=== PATIENT | male | born 1950 | race Caucasian/White ===

== ENCOUNTER 2018-02-02 13:14 | Emergency (ER) | payer OTHER ==
[~2018-02-02] VITALS: Ht 180.3 cm; Wt 97.1 kg
[~2018-02-02 13:14] MED LIST: ALTACE10 MG PO; ASPIR 8181 MG PO; ASPIRIN325 PO; HYDROCHLOROTHIA25 M2 PO; HYDROCODONE-AP1 EAC6 PO; LIPITOR10 MG PO; PHENERGAN 25 MG25 M1 PO
[2018-02-02 13:20] VITALS: BP 149/94
[2018-02-02 13:31] LABS: HEMATOCRIT 47.3 % (42.0-52.0); HEMOGLOBIN 15.9 gm/dL (14.0-18.0); MCHC 33.6 g/dL (28.0-37.0); MCV 86.3 fL (80.0-100.0); MPV 8.6 fl. (7.2-11.1); RBC 5.47 mil/uL (4.50-6.00); RDW-CV 13.2 % (10.5-14.5); WBC 8.2 thou/uL (4.0-11.0)
[2018-02-02 13:39] LABS: CALCIUM 9.6 mg/dL (8.5-10.1); CREATININE 1.2 mg/dL (0.6-1.3); POTASSIUM 3.6 mmol/L (3.5-5.1)
[2018-02-02 13:41] LABS: APTT 25.8 Seconds (25.0-31.3); INR 1.1; PROTIME 10.5 Seconds (9.20-11.50)
[2018-02-02 13:43] LABS: TOTAL BILIRUBIN 0.4 mg/dL (<0.1-1.0)
[2018-02-02 15:02] LABS: POC CA IONIZED 4.8 mg/dL (4.5-5.3); POC CREATININE 1.1 mg/dL (0.6-1.3); POC POTASSIUM 3.5 mmol/L (3.5-4.9)
[2018-02-02 15:55] VITALS: BP 135/92
--- NOTE | 2018-02-02 16:37 | EKG ---
[place] [address] ELECTROCARDIOGRAM REPORT Name: MICHAEL FLORES [id number] Admission: 02/02/18 Attend Phys: Discharge: 02/02/18 Date of : 52 Report #: [id number] THIS REPORT FOR: //name// [facility] ED Test Date: 2018-02-02 Test Time: 13:51:32 Pat Name: MICHAEL FLORES Department: Room: [facility] Gender: M Automotive Finance Manager: MS : 1950 Requested By: Tito Smith Order Number: [id number] MD: Nelson Ortiz Measurements Intervals [place] Rate: 99 P: 73 NE: 162 QRS: -38 QRSD: 156 T: 90 QT: 396 QTc: 509 Interpretive Statements Sinus tachycardia Multiple premature complexes, vent & supraven Left bundle branch block Baseline wander in lead(s) V1 Compared to ECG 11/07/2017 12:03:56 Sinus rhythm no longer present Atrial premature complex(es) no longer present Electronically Signed On 02-02-2018 16:37:18 SHUTTLER by Nelson Ortiz [email or web address] <ELECTRONICALLY SIGNED> By: Nelson Ortiz MD, FACC 02/02/18 1637 1351 1351 Nelson Ortiz MD, [facility] /EPI
== END 2018-02-02 15:57 | disposition short-term general hospital (02) ==
LOC: M.ERS 13:14 → M.TBA-ER 14:03 → M.ERS 15:57
PROVIDERS: Emergency Medicine Emergency Medical Services; Internal Medicine
DX: I63.511 Cerebral infarction due to unspecified occlusion or stenosis of right middle cerebral artery (principal); I10 Essential (primary) hypertension; E78.00 Pure hypercholesterolemia, unspecified

== ENCOUNTER 2018-07-24 11:24 | Observation (INO) | payer OTHER ==
[~2018-07-24] VITALS: Ht 177.8 cm; Wt 78.9 kg
[2018-07-24 11:40] VITALS: BP 175/74
[2018-07-24] MEDS ORDERED: PLAVIX 75 MG TA75 MG PO (11:45)
[2018-07-24] MEDS ORDERED: PROZAC20 MG PO (11:45)
[2018-07-24 12:03] LABS: HEMATOCRIT 46.2 % (42.0-52.0); HEMOGLOBIN 15.5 gm/dL (14.0-18.0); MCH 29.6 pg (26.0-34.0); MCHC 33.5 g/dL (28.0-37.0); MCV 88.3 fL (80.0-100.0); MPV 8.8 fl. (7.2-11.1); NUCLEATED RBCS 0 /100WBC; PLATELET COUNT* 195 thou/uL (150-400); RBC 5.23 mil/uL (4.50-6.00); RDW-CV 14.9 % (10.5-14.5); WBC 10.7 thou/uL (4.0-11.0)
[2018-07-24 12:35] LABS: ALBUMIN 4.2 g/dL (3.4-5.0); CALCIUM 9.3 mg/dL (8.5-10.1); POTASSIUM 4.5 mmol/L (3.5-5.1); TOTAL BILIRUBIN 0.5 mg/dL (<0.1-1.0); TOTAL PROTEIN 7.7 g/dL (6.4-8.2)
[2018-07-24 12:36] LABS: ABSOLUTE LYMPHOCYTES 0.4 thou/uL (0.8-5.3); ABSOLUTE MONOCYTES 0.4 thou/uL (0.0-1.2); ABSOLUTE NEUTROPHILS 9.8 thou/uL (1.6-8.1); ANISOCYTOSIS 1+; PLATELET ESTIMATE ADEQUATE; POIKILOCYTOSIS 1+
[2018-07-24 14:22] VITALS: BP 146/73
--- NOTE | 2018-07-24 15:14 | EKG ---
[place] [address] ELECTROCARDIOGRAM REPORT Name: MICHAEL FLORES Room: [address] ADM IN .R.#: [id number] Admission: 07/24/18 Attend Phys: Carlos Harper MD Discharge: Date of : 52 Report #: [id number] THIS REPORT FOR: //name// [facility] ED Test Date: 2018-07-24 Test Time: 12:12:36 Pat Name: MICHAEL FLORES Department: Room: [facility] Gender: M Paint Crew Supervisor: UNKNOWN : 1950 Requested By: Yovani Santana Order Number: [id number] MD: Emile Duarte Measurements Intervals [place] Rate: 70 P: 0 MT: 154 QRS: -31 QRSD: 156 T: 77 QT: 471 QTc: 509 Interpretive Statements Sinus rhythm Atrial premature complexes Probable left atrial enlargement Left bundle branch block Compared to ECG 02/02/2018 13:51:32 Atrial premature complex(es) now present Sinus tachycardia no longer present Electronically Signed On 07-24-2018 15:14:18 CDT by Emile Duarte [email or web address] <ELECTRONICALLY SIGNED> By: Emile Duarte MD, [facility] 07/24/18 1514 1212 1212 Emile Duarte MD, [facility] /EPI
[2018-07-24 15:26] VITALS: BP 151/85
[2018-07-24 17:23] LABS: CREATININE 0.9 mg/dL (0.6-1.3); MAGNESIUM 1.7 mg/dL (1.8-2.4); POTASSIUM 4.1 mmol/L (3.5-5.1)
[2018-07-24 18:14] LABS: URINE BILIRUBIN NEGATIVE (Negative); URINE BLOOD NEGATIVE (Negative); URINE CLARITY CLEAR; URINE COLOR YELLOW; URINE GLUCOSE-RANDOM NEGATIVE (Negative); URINE KETONES NEGATIVE (Negative); URINE LEUKOCYTES-REFLEX NEGATIVE (Negative); URINE NITRITE-REFLEX NEGATIVE (Negative); URINE PROTEIN NEGATIVE (Negative); URINE UROBILINOGEN 0.2 E.U./dl (0.2-1.0)
[2018-07-24 20:00] VITALS: BP 178/88
[2018-07-25 04:28] LABS: HEMATOCRIT 41.2 % (42.0-52.0); HEMOGLOBIN 13.9 gm/dL (14.0-18.0); MCH 29.6 pg (26.0-34.0); MCHC 33.6 g/dL (28.0-37.0); MCV 88.2 fL (80.0-100.0); MPV 9.5 fl. (7.2-11.1); RBC 4.68 mil/uL (4.50-6.00); RDW-CV 14.9 % (10.5-14.5); WBC 9.7 thou/uL (4.0-11.0)
[2018-07-25 04:58] LABS: ALBUMIN 3.3 g/dL (3.4-5.0); CALCIUM 8.8 mg/dL (8.5-10.1); CREATININE 0.9 mg/dL (0.6-1.3); MAGNESIUM 1.7 mg/dL (1.8-2.4); POTASSIUM 4.4 mmol/L (3.5-5.1); TOTAL BILIRUBIN 0.4 mg/dL (<0.1-1.0); TOTAL PROTEIN 6.4 g/dL (6.4-8.2)
[2018-07-25 10:36] VITALS: BP 160/78
[2018-07-25 12:17] VITALS: BP 160/78
== END 2018-07-25 15:45 | disposition home or self-care (01) ==
LOC: M.ERS 11:24 → M.TBA-ER 13:43 → M.ORTHSURG 13:43
PROVIDERS: Emergency Medicine; ADMIT Internal Medicine
DX: K42.0 Umbilical hernia with obstruction, without gangrene (principal); H91.90 Unspecified hearing loss, unspecified ear; I10 Essential (primary) hypertension; E78.00 Pure hypercholesterolemia, unspecified; R11.2 Nausea with vomiting, unspecified; Z95.820 Peripheral vascular angioplasty status with implants and grafts; Z86.73 Personal history of transient ischemic attack (TIA), and cerebral infarction without residual deficits

== ENCOUNTER 2021-11-03 12:16 | Inpatient (IN) | payer MEDICARE ==
[~2021-11-03] VITALS: Ht 167.6 cm; Wt 68.9 kg
--- NOTE | ~2021-11-03 | CON ---
[facility] [address] [place] [address] CONSULTATION Name: MICHAEL FLORES Room: [address] IN M.R.#: [id number] Admission: 11/03/21 Attend Phys: Amos Moreau Discharge: 11/05/21 Date of : 52 Report #: [id number] THIS REPORT FOR: cc: Emile Bunch John E. DO Khosla, Parveen K. MD ~ DATE OF CONSULTATION: 11/04/2021 HISTORY OF PRESENT ILLNESS: This is a 71-year-old male patient whose history is poor. This is because this patient is completely deaf. We are unable to reach the patient's , so history is only from the records. His past records in the computer appeared to be confusing. We will clarify from the and we can reach her. Apparently, the patient is admitted with generalized weakness. He apparently was COVID positive, but test here is negative. When I asked him if he is having any weakness, he just writes down that he is eating very well. REVIEW OF SYSTEMS: I am not able to tell from him or from the record what his deafness is from. It looks like he has headache, metabolic encephalopathy, partial bowel obstruction and a history of stroke. If the history of stroke is appropriate, then this patient was here and then the records are not confusing, but I need to talk to the patient's . A 14-point review of systems was carried out, but the patient does not provide any good history and I am not able to get much history in this patient. We need to reach the patient's to get those history. PAST MEDICAL HISTORY: Positive for stroke, but I need to get some more history. FAMILY AND SOCIAL HISTORY: Unavailable except he is and we will try to reach his . PHYSICAL EXAMINATION: NEUROLOGIC: Very limited. He did not talk to me. He could not understand what I was saying because he apparently cannot hear. He follows commands sometimes. Cranial nerve examination was very difficult, but was attempted. I do not see any focality. In spite of his CT scan finding, he moves all 4 extremities. It is impossible to do the sensory system examination in this patient. I could not look at the patient's fundus. CARDIAC: Appears unremarkable. VITAL SIGNS: Blood pressure is 111/59, respirations 24, pulse is 58. LABORATORY DATA: Indicates a white count of only 3.6. He does not appear to have any respiratory difficulty. His CT scan was reviewed and CT scan shows what looks like a large stroke on both sides. IMPRESSION: Although the patient's symptoms [place] [address] CONSULTATION Name: MICHAEL FLORES Room: [address] [place] M.R.#: [id number] Admission: 11/03/21 Attend Phys: mAos Moreau Discharge: 11/05/21 Date of : 52 Report #: [id number] problems, but I need to talk to the to get some more history about how aggressive she wants to be and what the cause of his present symptomatology is. Thank you very much for this referral, and if you have any questions, please feel free to contact me. By: [id number] Peña MD /nt
[~2021-11-03 12:16] MED LIST changes: +PLAVIX 75 MG TA75 MG PO; +PROZAC20 MG PO
[2021-11-03] MEDS ORDERED: FLOMAX0.4 MG PO (12:43)
[2021-11-03 12:44] VITALS: BP 118/57
[2021-11-03 13:08] LABS: ABSOLUTE LYMPHOCYTES 0.3 thou/uL (0.8-5.3); ABSOLUTE MONOCYTES 0.4 thou/uL (0.0-1.2); ABSOLUTE NEUTROPHILS 1.6 thou/uL (1.6-8.1); BASOPHILS 0.5 %; EOSINOPHILS 0.1 %; HEMOGLOBIN 15.9 gm/dL (14.0-18.0); MCH 29.9 pg (26.0-34.0); MCHC 33.9 g/dL (28.0-37.0); MCV 88.2 fL (80.0-100.0); MONOCYTES 18.3 %; NUCLEATED RBCS 0 /100WBC; POLYS 67.1 %; RBC 5.33 mil/uL (4.50-6.00); RDW-CV 13.4 % (10.5-14.5); WBC 2.3 thou/uL (4.0-11.0)
[2021-11-03 13:11] LABS: PLATELET COUNT* 72 thou/uL (150-400)
[2021-11-03 13:23] LABS: CALCIUM 8.8 mg/dL (8.5-10.1); CREATININE 1.1 mg/dL (0.6-1.3); POTASSIUM 4.4 mmol/L (3.5-5.1)
[2021-11-03 13:34] LABS: TOTAL BILIRUBIN 0.5 mg/dL (<0.1-1.0); TOTAL PROTEIN 6.8 g/dL (6.4-8.2)
--- NOTE | 2021-11-03 16:16 | EKG ---
[place] [address] ELECTROCARDIOGRAM REPORT Name: MICHAEL FLORES Room: [place] [address] ADM IN [facility]#: [id number] Admission: 11/03/21 Attend Phys: Walter Bentley Discharge: Date of : 52 Date of Service: 11/03/21 1233 Report #: [id number] THIS REPORT FOR: //name// [facility] ED Test Date: 2021-11-03 Test Time: 12:33:58 Pat Name: MICHAEL FLORES Department: Room: [facility] Gender: M Referral Specialist: SHIRIN : 1950 Requested By: Tito Smith Order Number: [id number] MD: Murali Angeles Measurements Intervals [place] Rate: 73 P: 21 UT: 153 QRS: -46 QRSD: 152 T: QT: 471 QTc: 519 Interpretive Statements Sinus rhythm Supraventricular bigeminy Probable left atrial enlargement Left bundle branch block left axis Compared to ECG 07/24/2018 12:12:36 No significant changes Electronically Signed On 11-03-2021 16:16:16 PLATE GRINDER by Murali Angeles [email or web address] <ELECTRONICALLY SIGNED> By: uMrali Angeles MD, [facility] 11/03/21 1616 1233 1233 Murali Angeles MD, [facility] /EPI
[2021-11-03 18:24] VITALS: BP 119/59
[2021-11-03 20:52] LABS: URINE BLOOD TRACE (Negative); URINE CLARITY CLEAR; URINE COLOR YELLOW; URINE GLUCOSE-RANDOM NEGATIVE (Negative); URINE KETONES TRACE (Negative); URINE LEUKOCYTES-REFLEX NEGATIVE (Negative); URINE NITRITE-REFLEX NEGATIVE (Negative); URINE PROTEIN 2+ (Negative); URINE SPECIFIC GRAVITY >= 1.030 (1.005-1.030)
[2021-11-03 21:01] LABS: URINE BILIRUBIN 1+ (Negative)
[2021-11-03 21:03] LABS: ICTOTEST (BILI CONFIRMATORY) Negative (Negative)
[2021-11-03 21:05] LABS: BACTERIA-REFLEX 1-9 Few /HPF (None Seen); HYALINE CASTS 0-3 Few /LPF (None Seen); MUCUS 4-6 Moderate strn/LPF (None Seen); SQUAMOUS 4-10 Moderate /LPF (0-3); URINE RBC 0-2 Rare /HPF (0-2); URINE WBC-REFLEX 0-5 Rare /HPF (0-5)
[2021-11-03 21:07] LABS: CRYSTALS None Seen /LPF (None Seen); FINE GRANULAR CASTS 0-3 Few /LPF (None Seen)
[2021-11-03 23:00] VITALS: BP 104/62
[2021-11-04 03:00] VITALS: BP 97/54
[2021-11-04 03:41] LABS: HEMATOCRIT 44.6 % (42.0-52.0); MCH 29.5 pg (26.0-34.0); MCHC 33.6 g/dL (28.0-37.0); MCV 87.9 fL (80.0-100.0); MPV 9.7 fl. (7.2-11.1); RBC 5.07 mil/uL (4.50-6.00); RDW-CV 13.1 % (10.5-14.5); WBC 3.6 thou/uL (4.0-11.0)
[2021-11-04 03:53] LABS: CALCIUM 8.5 mg/dL (8.5-10.1); POTASSIUM 4.2 mmol/L (3.5-5.1)
[2021-11-04 05:55] VITALS: BP 112/58
[2021-11-04 08:45] VITALS: BP 105/62
[2021-11-04 13:15] VITALS: BP 111/59
[2021-11-04 17:20] VITALS: BP 123/62
[2021-11-04 20:00] VITALS: BP 97/57
[2021-11-05] VITALS: BP 130/66
[2021-11-05 04:38] VITALS: BP 114/73
[2021-11-05 05:03] LABS: HEMOGLOBIN 14.5 gm/dL (14.0-18.0); MCH 29.6 pg (26.0-34.0); MCHC 33.7 g/dL (28.0-37.0); MCV 87.8 fL (80.0-100.0); MPV 10.1 fl. (7.2-11.1); NUCLEATED RBCS 0 /100WBC; PLATELET COUNT* 93 thou/uL (150-400); RDW-CV 13.1 % (10.5-14.5)
[2021-11-05 05:37] LABS: CALCIUM 9.1 mg/dL (8.5-10.1); POTASSIUM 4.1 mmol/L (3.5-5.1)
[2021-11-05 07:22] LABS: ABSOLUTE LYMPHOCYTES 0.4 thou/uL (0.8-5.3); ABSOLUTE MONOCYTES 0.8 thou/uL (0.0-1.2); ABSOLUTE NEUTROPHILS 1.8 thou/uL (1.6-8.1); METAMYELOCYTES 2 %
[2021-11-05 07:23] LABS: PLATELET ESTIMATE DECREASED
[2021-11-05 08:00] VITALS: BP 106/56
[2021-11-05] MEDS ORDERED: DEXAMETHASONE1 MG PO (11:16)
[2021-11-05 11:53] VITALS: BP 106/56
== END 2021-11-05 13:25 | disposition home or self-care (01) | DRG 177 ==
LOC: M.ERS 12:16 → M.TBA-ER 14:56 → M.ORTHSURG 11-04 17:37
PROVIDERS: Emergency Medicine Emergency Medical Services; ADMIT Internal Medicine; ATTEND Internal Medicine
DX: U07.1 COVID-19 (principal); G93.41 Metabolic encephalopathy; J12.82 Pneumonia due to coronavirus disease 2019; E87.1 Hypo-osmolality and hyponatremia; I10 Essential (primary) hypertension; R00.1 Bradycardia, unspecified; E78.00 Pure hypercholesterolemia, unspecified; D69.6 Thrombocytopenia, unspecified; R42 Dizziness and giddiness; K42.9 Umbilical hernia without obstruction or gangrene; H91.90 Unspecified hearing loss, unspecified ear; D72.819 Decreased white blood cell count, unspecified; Z28.21 Immunization not carried out because of patient refusal; I69.320 Aphasia following cerebral infarction; Z79.899 Other long term (current) drug therapy; Z95.820 Peripheral vascular angioplasty status with implants and grafts; Z89.422 Acquired absence of other left toe(s); Z86.73 Personal history of transient ischemic attack (TIA), and cerebral infarction without residual deficits